=== PATIENT | female | born 2000 | race African-American/Black ===

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

== ENCOUNTER 2020-02-16 11:48 | Emergency (ER) | payer OTHER ==
[~2020-02-16] VITALS: Ht 167.6 cm; Wt 54.4 kg
[~2020-02-16 11:48] MED LIST: BENTYL 20 MG TA20 M1 PO; KEFLEX500 M1 PO
[2020-02-16 12:27] LABS: ABSOLUTE NEUTROPHILS 6.7 thou/uL (1.4-8.2); BASOPHILS 0.3 % (0.0-2.0); EOSINOPHILS 0.1 % (0.0-3.0); HEMATOCRIT 36.6 % (37.0-47.0); HEMOGLOBIN 11.9 gm/dL (12.0-15.0); LYMPHOCYTES 9.8 % (24.0-44.0); MCH 26.6 pg (26.0-34.0); MCHC 32.5 g/dL (28.0-37.0); MCV 82.1 fL (80.0-100.0); MONOCYTES 6.5 % (1.0-8.0); PLATELET COUNT 295 thou/uL (150-400); POLYS 83.3 % (36.0-66.0); RBC 4.46 mil/uL (4.20-5.00); RDW 15.7 % (10.5-14.5); WBC 8.1 thou/uL (4.0-11.0)
[2020-02-16 12:39] LABS: CALCIUM 9.4 mg/dL (8.5-10.1); CREATININE 0.7 mg/dL (0.6-1.0); POTASSIUM 3.8 mmol/L (3.5-5.1)
[2020-02-16 12:43] LABS: ALBUMIN 4.2 g/dL (3.4-5.0); TOTAL BILIRUBIN 0.7 mg/dL (0.2-1.0); TOTAL PROTEIN 8.4 g/dL (6.4-8.2)
[2020-02-16] MEDS ORDERED: ONDANSETRON HCL4 M2 PO (14:16)
[2020-02-16 14:50] VITALS: BP 111/71
== END 2020-02-16 14:53 | disposition home or self-care (01) ==
LOC: ER 11:48
PROVIDERS: Nurse Practitioner
DX: R11.2 Nausea with vomiting, unspecified (principal); R10.9 Unspecified abdominal pain; R53.1 Weakness; R25.1 Tremor, unspecified